=== PATIENT | male | born 1990 | race Caucasian/White ===

== ENCOUNTER 2017-01-23 12:58 | Emergency (ER) | payer MEDICAID ==
[2017-01-23] MEDS ORDERED: diazePAM INJ 5 MG/ML SYRINGE IVP STA (13:23)
[2017-01-23] MEDS ORDERED: KETOROLAC 60 MG/2 ML VIAL IVP STA (13:23)
[2017-01-23] MEDS ORDERED: LIDOCAINE 2%-EPI 1:100000 20 ML MDV SUBQ STA (13:23)
[2017-01-23] MEDS ORDERED: diazePAM INJ 5 MG/ML SYRINGE ONE (13:38)
[2017-01-23] MEDS ORDERED: KETOROLAC 30 MG/ML VIAL ONE (13:38)
[2017-01-23] MEDS ORDERED: LIDOCAINE 2%-EPI 1:100000 20 ML MDV ONE (13:39)
[2017-01-23] MEDS ORDERED: KETOROLAC 30 MG/ML VIAL IVP STA (13:47)
[2017-01-23] MEDS ORDERED: CLINDAMYCIN 150 MG CAPSULE PO STA (16:00)
[2017-01-23] MEDS ORDERED: CLINDAMYCIN 150 MG CAPSULE PO ONE (16:03)
== END 2017-01-23 16:08 | disposition home or self-care (01) ==
DX: K04.7 Periapical abscess without sinus (principal); D72.829 Elevated white blood cell count, unspecified; M54.5 Low back pain; Z87.898 Personal history of other specified conditions; F17.200 Nicotine dependence, unspecified, uncomplicated
CPT/HCPCS: 36415; 41800; 72148; 80048; 85025; 85651; 86140; 96374; 96375; 99283; 99284; A9270

== ENCOUNTER 2018-11-23 17:47 | Emergency (ER) | payer MEDICAID ==
[2018-11-23 17:53] VITALS: BP 147/87
--- NOTE | 2018-11-23 18:42 | ED Physician Documentation ---
PD HPI URI - Stated complaint Stated Complaint: SORE THROAT - Chief complaint Chief Complaint: Heent - History obtained from History obtained from: Patient - History of Present Illness Timing - onset: Other (4 days of sore throat that was severe at the outset but now improving associated now with 2 days of nasal congestion but no fevers but he has had some chills.) Review of Systems Constitutional: reports: Chills. denies: Fever Nose: reports: Rhinorrhea / runny nose, Congestion Throat: reports: Sore throat Respiratory: denies: Cough GI: denies: Vomiting PD PAST MEDICAL HISTORY - Past Surgical History Past Surgical History: No - Present Medications Home Medications: Ambulatory Orders Medication Instructions Recorded Confirmed Guaifenesin/Pseudoephedrne HCl 1 each PO BID PRN #20 tab.er.12h 11/23/18 [Mucinex D ER 600-60 mg Tablet] Ibuprofen [Motrin] 800 mg PO Q8H PRN #30 tablet 11/23/18 - Allergies Allergies/Adverse Reactions: Allergies Allergy/AdvReac Type Severity Reaction Status Date / Time Penicillins Allergy Unknown Verified 11/23/18 17:51 - Social History Does the pt smoke?: Yes Smoking Status: Current every day smoker Does the pt drink ETOH?: No Does the pt have substance abuse?: No PD ED PE NORMAL - Vitals Vital signs reviewed: Yes - General General: Alert and oriented X 3, No acute distress - HEENT HEENT: Ears normal, Pharynx benign - Neck Neck: Supple, no meningeal sign, No bony TTP, No adenopathy - Derm Derm: No rash - Neuro Neuro: Alert and oriented X 3, Normal speech Results - Vitals Vitals: Vital Signs - 24 hr 11/23/18 17:50 Temperature 36.4 C L Heart Rate 87 Respiratory 18 Rate Blood Pressure 147/87 H O2 Saturation 98 Oxygen O2 Source Room air - Labs Labs: Laboratory Tests 11/23/18 17:55 Group A Strep Rapid Negative Departure - Departure Disposition: 01 Home, Self Care Clinical Impression: Viral URI Condition: Good Record reviewed to determine appropriate education?: Yes Instructions: ED Viral Syndrome Prescriptions: Guaifenesin/Pseudoephedrne HCl [Mucinex D ER 600-60 mg Tablet] 1 each PO BID PRN #20 tab.er.12h PRN Reason: congestion Ibuprofen [Motrin] 800 mg PO Q8H PRN #30 tablet PRN Reason: PAIN &/OR FEVER Comments: Call your doctor to arrange a follow-up appointment, make the next available appointment. In the interim, return anytime if worse or if new symptoms develop. Your blood pressure was elevated today on check into the emergency department. This does not mean that you have hypertension, it is a common phenomenon to come to the emergency department and have elevated blood pressure. I recommend that you see your primary care physician within the week to have it rechecked when you are feeling better.
== END 2018-11-23 18:45 | disposition home or self-care (01) ==
LOC: ED 17:47
DX: J06.9 Acute upper respiratory infection, unspecified (principal); F17.200 Nicotine dependence, unspecified, uncomplicated; R03.0 Elevated blood-pressure reading, without diagnosis of hypertension
CPT/HCPCS: 87070; 87430; 99283

== ENCOUNTER 2019-01-21 16:50 | Emergency (ER) | payer MEDICAID ==
[2019-01-21 17:01] VITALS: BP 117/85
--- NOTE | 2019-01-21 17:03 | ED Physician Documentation ---
PD HPI UPPER EXT INJURY - Stated complaint Stated Complaint: L WRIST CONCERNS - Chief complaint Chief Complaint: Ext Problem - History obtained from History obtained from: Patient - History of Present Illness Location: Left (He has had pain for the left wrist for about a year that hurts if he presses on it. Over the last few days noticed a lump on the anterior wrist to there.) Review of Systems Constitutional: reports: Reviewed and negative Throat: reports: Reviewed and negative Cardiac: reports: Reviewed and negative PD PAST MEDICAL HISTORY - Past Surgical History Past Surgical History: No - Present Medications Home Medications: Ambulatory Orders Medication Instructions Recorded Confirmed Guaifenesin/Pseudoephedrne HCl 1 each PO BID PRN #20 tab.er.12h 11/23/18 [Mucinex D ER 600-60 mg Tablet] Ibuprofen [Motrin] 800 mg PO Q8H PRN #30 tablet 11/23/18 - Allergies Allergies/Adverse Reactions: Allergies Allergy/AdvReac Type Severity Reaction Status Date / Time Penicillins Allergy Unknown Verified 11/23/18 17:51 - Social History Does the pt smoke?: Yes Smoking Status: Current every day smoker Does the pt drink ETOH?: No Does the pt have substance abuse?: No PD ED PE NORMAL - Vitals Vital signs reviewed: Yes - General General: Alert and oriented X 3, No acute distress - Extremities Extremities: Other (There is a moderate-sized ganglion cyst on the anterior surface of the left wrist at the level of the distal radius, is not tender. No signs of infection. Full range of motion.) - Neuro Neuro: Alert and oriented X 3, Normal speech Results - Vitals Vitals: Vital Signs - 24 hr 01/21/19 16:55 Temperature 36.6 C Heart Rate 112 H Respiratory 16 Rate Blood Pressure 117/85 H O2 Saturation 99 Oxygen O2 Source Room air Departure - Departure Disposition: 01 Home, Self Care Clinical Impression: Ganglion, left wrist Condition: Good Record reviewed to determine appropriate education?: Yes Instructions: ED Cyst Ganglion Comments: As discussed if you want to have this addressed you can follow-up with a hand surgeon. The closest is in [place]. Call [phone]. Return for new or worsening or concerning symptoms.
== END 2019-01-21 17:20 | disposition home or self-care (01) ==
LOC: ED 16:50
DX: M67.432 Ganglion, left wrist (principal); F17.200 Nicotine dependence, unspecified, uncomplicated
CPT/HCPCS: 99282; 99283

== ENCOUNTER 2019-04-20 14:03 | Emergency (ER) | payer MEDICAID ==
[2019-04-20 14:25] LABS: BILIRUBIN,URINE NEGATIVE (NEGATIVE); GLUCOSE, URINE (UA) NEGATIVE (NEGATIVE); KETONES,URINE (UA) NEGATIVE (NEGATIVE); LEUKOCYTE ESTERASE, URINE NEGATIVE (NEGATIVE); NITRITE,URINE POSITIVE (NEGATIVE); OCCULT BLOOD,URINE TRACE-INTA (NEGATIVE); PROTEIN,URINE NEGATIVE (NEGATIVE); UROBILINOGEN,URINE 0.2 (NORMAL) E.U./dL (NORMAL)
[2019-04-20 14:27] LABS: CLARITY,URINE CLEAR (CLEAR)
[2019-04-20 14:36] LABS: BASOPHILS % (AUTO) 0.6 %; EOSINOPHILS # (AUTO) 0.1 10^3/uL (0.0-0.7); EOSINOPHILS % (AUTO) 2.5 %; HGB - HEMOGLOBIN 14.5 g/dL (14.0-18.0); LYMPHOCYTES # (AUTO) 1.6 10^3/uL (1.5-3.5); MEAN CORPUSCULAR HEMOGLOBIN 28.7 pg (27.0-31.0); MEAN CORPUSCULAR HGB CONC 32.5 g/dL (32.0-36.0); MEAN CORPUSCULAR VOLUME 88.1 fL (80.0-94.0); MEAN PLATELET VOLUME 9.6 fL (7.4-11.4); MONOCYTES # (AUTO) 0.6 10^3/uL (0.0-1.0); MONOCYTES % (AUTO) 10.9 %; NEUTROPHILS # (AUTO) 2.9 10^3/uL (1.5-6.6); NEUTROPHILS % (AUTO) 55.8 %; PLT - PLATELET COUNT 279 10^3/uL (130-450); RED BLOOD COUNT 5.06 10^6/uL (4.70-6.10); RED CELL DISTRIBUTION WIDTH 13.8 % (12.0-15.0); WHITE BLOOD COUNT 5.2 x10^3/uL (4.8-10.8)
[2019-04-20 14:43] LABS: SQUAMOUS EPITHELIAL CELL,UR RARE Squamous (<= Few)
[2019-04-20 14:44] LABS: AMORPHOUS SEDIMENT,UR Few /LPF; BACTERIA,URINE Moderate /HPF (None Seen)
[2019-04-20 14:51] LABS: ALBUMIN 4.4 g/dL (3.2-5.5); ALBUMIN/GLOBULIN RATIO 1.4 (1.0-2.2); BILIRUBIN,TOTAL 0.6 mg/dL (0.2-1.0); CREATININE 0.9 mg/dL (0.6-1.2); TOTAL PROTEIN 7.5 g/dL (6.7-8.2)
--- NOTE | 2019-04-20 15:28 | ED Physician Documentation ---
PD HPI MALE - Stated complaint Stated Complaint: MALE - Chief complaint Chief Complaint: Abd Pain - History obtained from History obtained from: Patient - History of Present Illness Timing - onset: How many days ago (2) Timing - duration: Days (2) Timing - details: Gradual onset, Still present Associated symptoms: Dysuria, Urinary frequency. No: Unable to urinate, Hematuria, Discharge, Testiclar pain, Scrotal swelling PD HPI MALE CONTRIB FACTORS: Sexually active. No: Exposed to STD Similar symptoms before: Has not had sx before Recently seen: Not recently seen Review of Systems Constitutional: denies: Fever, Chills, Myalgias Nose: denies: Rhinorrhea / runny nose, Congestion Throat: denies: Sore throat Respiratory: denies: Cough Skin: denies: Rash Musculoskeletal: denies: Back pain PD PAST MEDICAL HISTORY - Past Medical History Past Medical History: No Psych: Other - Past Surgical History Past Surgical History: No - Present Medications Home Medications: Ambulatory Orders Medication Instructions Recorded Confirmed Guaifenesin/Pseudoephedrne HCl 1 each PO BID PRN #20 tab.er.12h 11/23/18 [Mucinex D ER 600-60 mg Tablet] Ibuprofen [Motrin] 800 mg PO Q8H PRN #30 tablet 11/23/18 Naproxen 375 mg PO BID #15 tablet 04/20/19 Sulfamethox/Trimeth 800/160 1 each PO BID #14 tablet 04/20/19 [Bactrim Ds 800/160] - Allergies Allergies/Adverse Reactions: Allergies Allergy/AdvReac Type Severity Reaction Status Date / Time Penicillins Allergy Unknown Verified 04/20/19 14:13 - Social History Does the pt smoke?: Yes Smoking Status: Current every day smoker Does the pt drink ETOH?: No Does the pt have substance abuse?: No PD ED PE NORMAL - Vitals Vital signs reviewed: Yes - General General: Alert and oriented X 3, No acute distress, Well developed/nourished - Abdomen Abdomen: Soft, Non tender - Male Male : Other (meatus and external genitalia are normal. ) - Back Back: No CVA TTP Results - Vitals Vitals: Vital Signs - 24 hr 04/20/19 04/20/19 14:11 16:03 Temperature 36.0 C L Heart Rate 81 74 Respiratory 18 18 Rate Blood Pressure 120/70 92/72 O2 Saturation 100 98 Oxygen O2 Source Room air - Labs Labs: Laboratory Tests 04/20/19 04/20/19 04/20/19 14:19 14:19 14:30 WBC 5.2 RBC 5.06 Hgb 14.5 Hct 44.6 MCV 88.1 MCH 28.7 MCHC 32.5 RDW 13.8 Plt Count 279 MPV 9.6 Neut # (Auto) 2.9 Lymph # (Auto) 1.6 Cloud # (Auto) 0.6 Eos # (Auto) 0.1 Baso # (Auto) 0.0 Absolute Nucleated RBC 0.00 Nucleated RBC % 0.0 Sodium Potassium Chloride Carbon Dioxide Anion Gap BUN Creatinine Estimated GFR (MDRD) Glucose Calcium Total Bilirubin AST ALT Alkaline Phosphatase Total Protein Albumin Globulin Albumin/Globulin Ratio Lipase Urine Color YELLOW Urine Clarity CLEAR Urine pH 7.0 Ur Specific [place] 1.020 Urine Protein NEGATIVE Urine Glucose (UA) NEGATIVE Urine Ketones NEGATIVE Urine Occult Blood TRACE-INTA Urine Nitrite POSITIVE H Urine Bilirubin NEGATIVE Urine Urobilinogen 0.2 (NORMAL) Ur Leukocyte Esterase NEGATIVE Urine RBC 6-10 H Urine WBC 4-5 Ur Squamous Epith Cells RARE Squamous Amorphous Sediment Few Urine Bacteria Moderate H Ur Microscopic Review INDICATED Urine Culture Comments INDICATED Chlam trachomat DNA PCR NEGATIVE N.gonorrhoeae DNA (PCR) NEGATIVE T. vaginalis (PCR) NEGATIVE 04/20/19 14:30 WBC RBC Hgb Hct MCV MCH MCHC RDW Plt Count MPV Neut # (Auto) Lymph # (Auto) Cloud # (Auto) Eos # (Auto) Baso # (Auto) Absolute Nucleated RBC Nucleated RBC % Sodium 138 Potassium 4.1 Chloride 102 Carbon Dioxide 27 Anion Gap 9.0 BUN 14 Creatinine 0.9 Estimated GFR (MDRD) 102 Glucose 94 Calcium 9.0 Total Bilirubin 0.6 AST 16 ALT 14 Alkaline Phosphatase 82 Total Protein 7.5 Albumin 4.4 Globulin 3.1 Albumin/Globulin Ratio 1.4 Lipase 33 Urine Color Urine Clarity Urine pH Ur Specific [place] Urine Protein Urine Glucose (UA) Urine Ketones Urine Occult Blood Urine Nitrite Urine Bilirubin Urine Urobilinogen Ur Leukocyte Esterase Urine RBC Urine WBC Ur Squamous Epith Cells Amorphous Sediment Urine Bacteria Ur Microscopic Review Urine Culture Comments Chlam trachomat DNA PCR N.gonorrhoeae DNA (PCR) T. vaginalis (PCR) PD MEDICAL DECISION MAKING - ED course Complexity details: considered differential (had dysuria and positive UA, but would still be concerned about urethritis, so added STD test to urine in lab. ), d/w patient Departure - Departure Disposition: 01 Home, Self Care Clinical Impression: UTI (urinary tract infection) Qualifiers: Urinary tract infection type: acute cystitis Hematuria presence: with hematuria Qualified Code(s): N30.01 - Acute cystitis with hematuria Condition: Stable Record reviewed to determine appropriate education?: Yes Instructions: ED UTI Cystitis Male Prescriptions: Naproxen 375 mg PO BID #15 tablet Sulfamethox/Trimeth 800/160 [Bactrim Ds 800/160] 1 each PO BID #14 tablet Comments: Stay well-hydrated. Bactrim antibiotic twice daily for a week for the bladder infection. You can use naproxen twice daily for pain and inflammation. Recheck if not improving over the next several days. We will do a culture off of the urine test as well and call you in 2 or 3 days if the antibiotics need to be changed but otherwise this should work. Discharge Date/Time: 04/20/19 16:05
[2019-04-20] MEDS ORDERED: SULFAMETH/TRIMETH DS 800/160 MG TABLET PO STA (15:52)
[2019-04-20 16:05] VITALS: BP 92/72
[2019-04-20 22:10] LABS: TRICHOMONAS VAGINALIS DNA NEGATIVE (NEGATIVE)
== END 2019-04-20 16:05 | disposition home or self-care (01) ==
LOC: ED 14:03
DX: N30.01 Acute cystitis with hematuria (principal); F17.200 Nicotine dependence, unspecified, uncomplicated
CPT/HCPCS: 36415; 80053; 81001; 83690; 85025; 87086; 87181; 87491; 87591; 87661; 99283; A9270; 81003

== ENCOUNTER 2020-02-17 19:24 | Outpatient (CLI) | payer MEDICAID | END 2020-02-17 19:25 | disposition home or self-care (01) | LOC: COV 19:24 | PROVIDERS: ATTEND Family Medicine | DX: R50.9 Fever, unspecified (principal); M79.10 Myalgia, unspecified site | CPT/HCPCS: 81599 ==

== ENCOUNTER 2020-12-12 10:21 | Emergency (ER) | payer OTHER, MEDICAID ==
--- NOTE | 2020-12-12 10:59 | XRAY Report ---
PROCEDURE: Knee 3 View RT INDICATIONS: pain/injury TECHNIQUE: 3 views of the right knee were acquired. COMPARISON: None. FINDINGS: Bones: No acute fractures or dislocations. No suspicious bony lesions. Soft tissues: Moderate joint effusion. No suspicious soft tissue calcifications. IMPRESSION: No acute osseous abnormality. Moderate joint effusion. If there is clinical concern or p ersistent symptoms, additional imaging such as repeat radiographs or advanced imaging (e.g. CT, MRI) may be helpful for further evaluation. Reviewed by: Geovany Soriano MD on 12/12/2020 10:57 AM [facility] Approved by: Geovany Soriano MD on 12/12/2020 10:57 AM [facility] Station ID: [id number]
--- NOTE | 2020-12-12 11:33 | ED Physician Documentation ---
History of Present Illness - Stated complaint Stated Complaint: RT KNEE INJURY - Chief complaint Chief Complaint: Ext Problem - History obtained from History obtained from: Patient - Additonal information Additional information: Patient comes emergency department chief complaint of right knee injury 3 days ago at work. He states that he was trying to take a window off a flat bed when some doors that were behind it fell against the window and torn and on top of the patient. Patient states he fell to the ground and that his right leg went out to the side and up behind him. He states that most of the movement was at the knee. He states that the weight of the window is about 80 pounds in each stores about 120 pounds. Patient states that he does not remember feeling a pop during the incident but that when he got up he had some pain in the medial aspect of his right knee. He states he has been able to ambulate since but he has had persistent pain in the same area on the medial aspect. He has had some mild swelling. No bruising. He states that sometimes when he flexes maximally, he feels a pop. He states he is here because one of his friends told him that the popping may mean he needs surgery. Patient denies numbness or tingling in his foot. No other injuries. No prior injury to the right knee. No other complaints at this time. Review of Systems Ten Systems: 10 systems reviewed and negative Constitutional: reports: Reviewed and negative Eyes: reports: Reviewed and negative Ears: reports: Reviewed and negative Nose: reports: Reviewed and negative Throat: reports: Reviewed and negative Cardiac: reports: Reviewed and negative Respiratory: reports: Reviewed and negative GI: reports: Reviewed and negative : reports: Reviewed and negative Skin: reports: Reviewed and negative Musculoskeletal: reports: Extremity pain Neurologic: reports: Reviewed and negative Psychiatric: reports: Reviewed and negative Endocrine: reports: Reviewed and negative Immunocompromised: reports: Reviewed and negative PD PAST MEDICAL HISTORY - Past Medical History Past Medical History: No Cardiovascular: None Respiratory: None Neuro: None Endocrine/Autoimmune: None GI: None : None HEENT: None Psych: Other Musculoskeletal: None Derm: None - Past Surgical History Past Surgical History: No - Present Medications Home Medications: Ambulatory Orders Medication Instructions Recorded Confirmed No Known Home Medications 12/12/20 12/12/20 - Allergies Allergies/Adverse Reactions: Allergies Allergy/AdvReac Type Severity Reaction Status Date / Time Penicillins Allergy Unknown Verified 12/12/20 10:27 - Social History Does the pt smoke?: Yes Smoking Status: Current every day smoker Does the pt drink ETOH?: No Does the pt have substance abuse?: No - Immunizations Immunizations are current?: No Immunizations: Other immun not current - POLST Patient has POLST: No PD ED PE NORMAL - Vitals Vital signs reviewed: Yes - General General: Alert and oriented X 3, No acute distress, Well developed/nourished - HEENT HEENT: Atraumatic, PERRL, EOMI, Moist mucous membranes - Neck Neck: Supple, no meningeal sign - Respiratory Respiratory: No respiratory distress - Derm Derm: Normal color, Warm and dry, No rash - Extremities Extremities: No deformity, No edema, No calf tenderness / cord, Other (Mild to moderate tenderness medial joint line of right knee. No instability with varus or valgus stress. No AP instability.) - Neuro Neuro: Alert and oriented X 3, therapeutic recreation assistant 2-12 intact, No motor deficit, No sensory deficit, Normal speech - Psych Psych: Normal mood, Normal affect Results - Vitals Vitals: Vital Signs - 24 hr 12/12/20 12/12/20 10:25 11:41 Temperature 36.7 C 36.7 C Heart Rate 66 83 Respiratory 18 17 Rate Blood Pressure 129/78 124/72 O2 Saturation 100 99 Oxygen O2 Source Room air - Rads (name of study) R knee Radiology: Final report received, EMP read indepedently, See rad report (neg) PD MEDICAL DECISION MAKING - ED course Complexity details: reviewed results, re-evaluated patient, considered differential, d/w patient ED course: The patient had very minor knee findings, and his x-ray was negative. He actually ambulated quite well in the emergency department and I discussed with the patient that he most likely has a minor sprain. The patient declined to have an Abimael wrap or any other intervention. I discussed with the patient that he needs to go see his primary care physician if he is not feeling any improvement in the next couple weeks. At that time, he may discuss whether MRI is appropriate. However, the most likely scenario is that this will blow over on its own. I discussed with the patient he should not be doing any heavy lifting and twisting until his knee is feeling better. I have written him a work note to this end. We have discussed the usual indications for return. Departure - Departure Disposition: 01 Home, Self Care Clinical Impression: Right knee sprain Qualifiers: Encounter type: initial encounter Involved ligament of knee: unspecified ligament Qualified Code(s): S83.91XA - Sprain of unspecified site of right knee, initial encounter Condition: Stable Instructions: ED Sprain Knee Comments: Your x-ray looks good. You do not have much swelling of your knee, and your knee joint is stable. It is possible that you have sustained a small tear to your medial collateral ligament, or that you had somewhat of an injury to your meniscus, the cartilage between the bones of the thigh and lower leg at the knee joint. Generally, these sorts of injuries will heal well on their own if given time. Sprains take 4 to 6 weeks to do the vaginal major functional healing, though further healing may occur over a longer period of time. If you are not feeling any better at all after a couple of weeks, you should see your doctor to discuss whether MRI would be appropriate. In the meantime, you may take Tylenol and ibuprofen as needed, and apply ice to your knee for swelling or pain. Avoid any heavy lifting or strenuous running and twisting movements until your knee is feeling better. Forms: Activity restrictions Discharge Date/Time: 12/12/20 11:43
[2020-12-12 11:42] VITALS: BP 124/72
== END 2020-12-12 11:43 | disposition home or self-care (01) ==
LOC: ED 10:21
DX: S83.91XA Sprain of unspecified site of right knee, initial encounter (principal); W20.8XXA Other cause of strike by thrown, projected or falling object, initial encounter; Y93.89 Activity, other specified; Y99.0 Civilian activity done for income or pay; F17.200 Nicotine dependence, unspecified, uncomplicated
CPT/HCPCS: 99282; 99283

== ENCOUNTER 2021-07-22 14:00 | Emergency (ER) | payer MEDICAID ==
[2021-07-22 15:07] LABS: BASOPHILS % (AUTO) 0.6 %; EOSINOPHILS % (AUTO) 0.4 %; HCT - HEMATOCRIT 45.6 % (42.0-52.0); HGB - HEMOGLOBIN 15.7 g/dL (14.0-18.0); LYMPHOCYTES # (AUTO) 1.2 10^3/uL (1.5-3.5); LYMPHOCYTES % (AUTO) 15.9 %; MEAN CORPUSCULAR HEMOGLOBIN 29.3 pg (27.0-31.0); MEAN CORPUSCULAR HGB CONC 34.4 g/dL (32.0-36.0); MEAN CORPUSCULAR VOLUME 85.2 fL (80.0-94.0); MEAN PLATELET VOLUME 9.6 fL (7.4-11.4); MONOCYTES # (AUTO) 0.9 10^3/uL (0.0-1.0); MONOCYTES % (AUTO) 12.3 %; NEUTROPHILS # (AUTO) 5.1 10^3/uL (1.5-6.6); NEUTROPHILS % (AUTO) 70.7 %; PLT - PLATELET COUNT 349 10^3/uL (130-450); RED BLOOD COUNT 5.35 10^6/uL (4.70-6.10); WHITE BLOOD COUNT 7.3 x10^3/uL (4.8-10.8)
[2021-07-22 15:21] LABS: ALBUMIN/GLOBULIN RATIO 1.7 (1.0-2.2); BILIRUBIN,TOTAL 1.7 mg/dL (0.2-1.0); CALCIUM 10.2 mg/dL (8.5-10.3); POTASSIUM 4.1 mmol/L (3.5-5.0)
[2021-07-22] MEDS ORDERED: FOLIC ACID INJ 1 MG, THIAMINE INJ 100 MG, MAGNESIUM SULFATE 2 GM, MULTIVITAMIN 10 ML in... IV STA ×5 (16:09)
[2021-07-22] MEDS ORDERED: ONDANSETRON 4 MG/2 ML VIAL IVP STA (16:10)
[2021-07-22] MEDS ORDERED: DEXAMETHASONE 10 MG/ML VIAL IVP STA (16:10)
--- NOTE | 2021-07-22 16:13 | ED Physician Documentation ---
PD HPI NVD - Stated complaint Stated Complaint: VOMITING - Chief complaint Chief Complaint: Abd Pain - History obtained from History obtained from: Patient - History of Present Illness Timing - onset: Today Timing - duration: Hours Timing - details: Abrupt onset, Still present Associated symptoms: Abdominal pain, Dizzy, Near syncope / syncope, Loss of appetite Contributing factors: Other (recent meth handley) Improved by: Vomiting Worsened by: Eating Similar symptoms before: Has not had sx before Recently seen: Not recently seen - Additonal information Additional information: 30-year-old male who presents to the emergency department with nausea and vomiting abdominal pain states that he has recently been on a methamphetamine handley for 3 days and did not sleep at all. Today after discontinuing the methamphetamine yesterday the patient awoke with abdominal pain vomiting and chills. He feels dehydrated and has some abdominal pain after he eats. Review of Systems Constitutional: reports: Chills. denies: Fever Eyes: denies: Decreased vision Ears: denies: Ear pain Nose: denies: Rhinorrhea / runny nose, Congestion Throat: denies: Sore throat Cardiac: denies: Chest pain / pressure, Palpitations Respiratory: denies: Dyspnea GI: reports: Abdominal Pain, Nausea, Vomiting : denies: Dysuria, Frequency Skin: denies: Rash Musculoskeletal: denies: Neck pain, Back pain, Extremity pain Neurologic: denies: Generalized weakness, Focal weakness, Numbness PD PAST MEDICAL HISTORY - Past Medical History Cardiovascular: None Respiratory: None Neuro: None Endocrine/Autoimmune: None GI: None : None HEENT: None Psych: Other Musculoskeletal: None Derm: None - Past Surgical History Past Surgical History: No - Present Medications Home Medications: Ambulatory Orders Medication Instructions Recorded Confirmed No Known Home Medications 12/12/20 12/12/20 - Allergies Allergies/Adverse Reactions: Allergies Allergy/AdvReac Type Severity Reaction Status Date / Time Penicillins Allergy Unknown Verified 07/22/21 14:03 - Social History Does the pt smoke?: Yes Smoking Status: Current every day smoker Does the pt drink ETOH?: No Does the pt have substance abuse?: No - Immunizations Immunizations are current?: No Immunizations: Other immun not current - POLST Patient has POLST: No PD ED PE NORMAL - Vitals Vital signs reviewed: Yes (hypertensive ) - General General: Alert and oriented X 3, No acute distress, Well developed/nourished - HEENT HEENT: Atraumatic, PERRL, EOMI - Neck Neck: Supple, no meningeal sign, No bony TTP - Cardiac Cardiac: RRR, No murmur - Respiratory Respiratory: No respiratory distress, Clear bilaterally - Abdomen Abdomen: Normal bowel sounds, Soft, Non tender, Non distended, No organomegaly - Back Back: No CVA TTP, No spinal TTP - Derm Derm: Normal color, Warm and dry, No rash - Extremities Extremities: No deformity, No edema - Neuro Neuro: Alert and oriented X 3, handle sander operator 2-12 intact, No motor deficit, No sensory deficit, Normal speech Eye Opening: Spontaneous Motor: Obeys Commands Verbal: Oriented GCS Score: 15 - Psych Psych: Normal mood, Normal affect Results - Vitals Vitals: Vital Signs - 24 hr 07/22/21 07/22/21 14:04 16:34 Temperature 36.5 C Heart Rate 97 61 Respiratory 16 18 Rate Blood Pressure 147/85 H 144/89 H O2 Saturation 100 98 Oxygen O2 Source Room air - Labs Labs: Laboratory Tests 07/22/21 07/22/21 07/22/21 15:03 15:03 16:00 WBC 7.3 RBC 5.35 Hgb 15.7 Hct 45.6 MCV 85.2 MCH 29.3 MCHC 34.4 RDW 12.0 Plt Count 349 MPV 9.6 Neut # (Auto) 5.1 Lymph # (Auto) 1.2 L [place] # (Auto) 0.9 Eos # (Auto) 0.0 Baso # (Auto) 0.0 Absolute Nucleated RBC 0.00 Nucleated RBC % 0.0 Sodium 133 L Potassium 4.1 Chloride 93 L Carbon Dioxide 28 Anion Gap 12.0 BUN 20 Creatinine 1.0 Estimated GFR (MDRD) 89 Glucose 109 H Calcium 10.2 Total Bilirubin 1.7 H AST 40 ALT 42 Alkaline Phosphatase 63 Total Protein 8.0 Albumin 5.0 Globulin 3.0 Albumin/Globulin Ratio 1.7 Lipase 26 Urine Color DARK YELLOW Urine Clarity CLEAR Urine pH 6.5 Ur Specific Black 1.020 Urine Protein NEGATIVE Urine Glucose (UA) NEGATIVE Urine Ketones 40 H Urine Occult Blood NEGATIVE Urine Nitrite NEGATIVE Urine Bilirubin NEGATIVE Urine Urobilinogen 0.2 (NORMAL) Ur Leukocyte Esterase NEGATIVE Ur Microscopic Review NOT INDICATED Urine Culture Comments NOT INDICATED PD MEDICAL DECISION MAKING - ED course Complexity details: reviewed results, re-evaluated patient, considered differential, d/w patient ED course: 30-year-old male in withdrawal from amphetamine has nausea vomiting and is dehydrated. He is administered a banana bag, dexamethasone and Zofran with marked improvement. Departure - Departure Disposition: 01 Home, Self Care Clinical Impression: Dehydration, Methamphetamine abuse, episodic Condition: Stable Instructions: ED Dehydration, ED Drug Abuse General Follow-Up: [facility] [place] [Provider Group] Forms: Activity restrictions
[2021-07-22 16:45] LABS: GLUCOSE, URINE (UA) NEGATIVE (NEGATIVE); KETONES,URINE (UA) 40 mg/dL (NEGATIVE); LEUKOCYTE ESTERASE, URINE NEGATIVE (NEGATIVE); NITRITE,URINE NEGATIVE (NEGATIVE); OCCULT BLOOD,URINE NEGATIVE (NEGATIVE); PH,URINE 6.5 PH (5.0-7.5); PROTEIN,URINE NEGATIVE (NEGATIVE); UROBILINOGEN,URINE 0.2 (NORMAL) E.U./dL (NORMAL)
[2021-07-22 16:47] LABS: BILIRUBIN,URINE NEGATIVE (NEGATIVE); CLARITY,URINE CLEAR (CLEAR); ICTOTEST,URINE NEGATIVE
[2021-07-22 17:35] VITALS: BP 125/78
== END 2021-07-22 17:35 | disposition home or self-care (01) ==
LOC: ED 14:00
DX: E86.0 Dehydration (principal); F15.13 Other stimulant abuse with withdrawal; F17.200 Nicotine dependence, unspecified, uncomplicated
CPT/HCPCS: 36415; 80053; 81003; 83690; 85025; 96365; 96375; 99284; J3411; 81001; 87086

== ENCOUNTER 2023-05-27 15:22 | Emergency (ER) | payer MEDICAID, OTHER ==
[2023-05-27 15:29] VITALS: BP 150/86; O2SAT 98
--- NOTE | 2023-05-27 17:14 | ED Physician Documentation ---
PD HPI HEENT - Stated complaint Stated Complaint: SWOLLEN FACE - Chief complaint Chief Complaint: Heent - History obtained from History obtained from: Patient - History of Present Illness Timing - onset: How many days ago (few) Timing - duration: Days (few) Timing - details: Gradual onset, Still present Location: Tooth (left upper tooth pain and gum swelling with now facial swelling. No weakness nor numbness on face.) Associated symptoms: Facial swelling. No: Fever, Congestion Similar symptoms before: Diagnosis (dental infections) Recently seen: Not recently seen Review of Systems Constitutional: denies: Fever, Chills Nose: denies: Congestion Throat: reports: Dental pain / toothache. denies: Sore throat Respiratory: denies: Cough Neurologic: denies: Focal weakness, Numbness, Headache PD PAST MEDICAL HISTORY - Past Medical History Cardiovascular: None Respiratory: None Neuro: None Endocrine/Autoimmune: None GI: None : None HEENT: None Psych: Other Musculoskeletal: None Derm: None - Past Surgical History Past Surgical History: No - Present Medications Home Medications: Ambulatory Orders Medication Instructions Recorded Confirmed Chlorhexidine Gluconate [Peridex] 15 ml MM TID #118 ml 05/27/23 Ibuprofen [Motrin] 600 mg PO TID PRN #20 tab 05/27/23 clindamycin HCL [Clindamycin HCl] 300 mg PO TID 7 Days #20 cap 05/27/23 - Allergies Allergies/Adverse Reactions: Allergies Allergy/AdvReac Type Severity Reaction Status Date / Time Penicillins Allergy Unknown Verified 05/27/23 15:25 - Social History Does the pt smoke?: Yes Smoking Status: Current every day smoker Does the pt drink ETOH?: No Does the pt have substance abuse?: No - Immunizations Immunizations are current?: No Immunizations: Other immun not current - POLST Patient has POLST: No PD ED PE NORMAL - Vitals Vital signs reviewed: Yes - General General: Alert and oriented X 3, Well developed/nourished - HEENT HEENT: Pharynx benign. No: Dentition benign (multiple caries. Left upper teeth with decay. Gum with redness, tender, swelling. No fluctuance. Facial swelling left cheek. Not tneder in parotid and no redness/warmth of skin in area. ) - Neck Neck: Supple, no meningeal sign, No adenopathy - Derm Derm: Normal color, Warm and dry, No rash Results - Vitals Vitals: Vital Signs - 24 hr 05/27/23 15:25 Temperature 36.7 C Heart Rate 100 Respiratory 16 Rate Blood Pressure 150/86 H O2 Saturation 98 Oxygen O2 Source Room air Departure - Departure Disposition: 01 Home, Self Care Clinical Impression: Infected dental caries, Facial swelling Condition: Stable Record reviewed to determine appropriate education?: Yes Instructions: ED Abscess Dental Prescriptions: clindamycin HCL [Clindamycin HCl] 300 mg PO TID 7 Days #20 cap Ibuprofen [Motrin] 600 mg PO TID PRN #20 tab PRN Reason: Pain Chlorhexidine Gluconate [Peridex] 15 ml MM TID #118 ml Comments: This does look to be a dental infection with involvement into the gum and may be extending into the sinuses. Use clindamycin 3 times daily with food for the next week. Add ibuprofen anti-inflammatory 3 times a day with food as well. To that you can use Tylenol every 4-6 hours as needed for pain. It can also be helpful to use the chlorhexidine oral rinse twice daily in that area to help clean the decayed area which was the introduction site for the germs. Recheck if not improving well over the next several days and resolved by 4 to 5 days. Return if worse. I sent your prescriptions to [facility] in [place]. Forms: PCP List Discharge Date/Time: 05/27/23 17:37
[2023-05-27] MEDS ORDERED: ACETAMINOPHEN 325 MG TABLET PO STA (17:32)
[2023-05-27] MEDS ORDERED: CLINDAMYCIN 150 MG CAPSULE PO STA (17:32)
[2023-05-27] MEDS ORDERED: IBUPROFEN 600 MG TABLET PO STA (17:32)
== END 2023-05-27 17:37 | disposition home or self-care (01) ==
LOC: ED 15:22
DX: K02.9 Dental caries, unspecified (principal)
CPT/HCPCS: 99282; 99283; A9270